=== PATIENT | female | born 1990 | race Caucasian/White ===

== ENCOUNTER 2016-11-01 22:10 | Emergency (ER) | payer OTHER ==
[2016-11-01 23:35] LABS: BASOPHIL % 0.2 % (0-2); PLATELET COUNT 285 x10^3mcL (130-400)
[2016-11-01 23:40] LABS: RED CELL DISTRIBUTION WIDTH 14.8 % (11.5-14.5)
[2016-11-01 23:43] LABS: microscopic required? YES; urine erythrocyte 3+ (NEGATIVE)
[2016-11-01 23:48] LABS: CALCIUM 8.9 mg/dL (8.5-10.1); CARBON DIOXIDE 24.5 mmol/L (21-32); CHLORIDE SERUM 108 mmol/L (98-107); CREATININE SERUM 0.9 mg/dL (0.6-1.0); GFR1 > 60 mL/min; GLUCOSE SERUM 88 mg/dL (74-106); POTASSIUM SERUM 3.8 mmol/L (3.5-5.1); SODIUM SERUM 145 mmol/L (136-145)
[2016-11-02 00:45] VITALS: BP 110/88
== END 2016-11-02 00:45 | disposition home or self-care (01) ==
LOC: ED 22:10
PROVIDERS: Emergency Medicine
DX: N10 Acute pyelonephritis (principal)
CPT/HCPCS: 36415; J0696; J1885

== ENCOUNTER 2016-12-27 08:31 | Emergency (ER) | payer OTHER ==
[~2016-12-27] VITALS: Ht 154.9 cm; Wt 127.9 kg
[2016-12-27 10:45] VITALS: BP 121/75
== END 2016-12-27 10:45 | disposition home or self-care (01) ==
LOC: ED 08:31
DX: N39.0 Urinary tract infection, site not specified (principal); R05 Cough; M79.1 Myalgia

== ENCOUNTER 2017-03-14 20:11 | Emergency (ER) | payer OTHER ==
[~2017-03-14] VITALS: Ht 154.9 cm; Wt 90.3 kg
[2017-03-14 20:28] VITALS: Ht 154.9 cm; Wt 90.3 kg
[2017-03-14 22:20] VITALS: BP 133/67
== END 2017-03-14 22:20 | disposition home or self-care (01) ==
LOC: ED 20:11
DX: S16.1XXA Strain of muscle, fascia and tendon at neck level, initial encounter (principal); S29.012A Strain of muscle and tendon of back wall of thorax, initial encounter; S39.012A Strain of muscle, fascia and tendon of lower back, initial encounter; S46.912A Strain of unspecified muscle, fascia and tendon at shoulder and upper arm level, left arm, initial encounter; S46.911A Strain of unspecified muscle, fascia and tendon at shoulder and upper arm level, right arm, initial encounter; V49.9XXA Car occupant (driver) (passenger) injured in unspecified traffic accident, initial encounter; Y93.89 Activity, other specified; Y99.8 Other external cause status; Y92.89 Other specified places as the place of occurrence of the external cause

== ENCOUNTER 2017-07-16 19:34 | Emergency (ER) | payer OTHER ==
[~2017-07-16] VITALS: Ht 154.9 cm; Wt 139.8 kg
[2017-07-16 19:51] VITALS: Ht 154.9 cm; Wt 139.8 kg
[2017-07-16 21:06] LABS: UA SPECIFIC GRAVITY >=1.030 (1.005-1.035); microscopic required? YES; urine erythrocyte 3+ (NEGATIVE)
[2017-07-16 21:08] LABS: BASOPHIL % 0.4 % (0-2); PLATELET COUNT 248 x10^3mcL (130-400)
[2017-07-16 21:11] LABS: RED CELL DISTRIBUTION WIDTH 15.1 % (11.5-14.5)
[2017-07-16 23:33] VITALS: BP 111/60
== END 2017-07-16 23:33 | disposition home or self-care (01) ==
LOC: ED 19:34
PROVIDERS: Emergency Medicine Emergency Medical Services
DX: O02.0 Blighted ovum and nonhydatidiform mole (principal)
CPT/HCPCS: 36415; Q0092